=== PATIENT | male | born 1950 | race African-American/Black ===

== ENCOUNTER 2017-01-15 19:54 | Emergency (ER) | payer MEDICARE, MEDICAID ==
[~2017-01-15] VITALS: Ht 180.3 cm; Wt 91.0 kg
[2017-01-15] MEDS ORDERED: TRAMADOL 50MG TABLET PO ONE (22:30)
[2017-01-16 00:08] VITALS: BP 144/94
== END 2017-01-16 00:29 | disposition home or self-care (01) ==
LOC: ER 19:54
DX: S46.812A Strain of other muscles, fascia and tendons at shoulder and upper arm level, left arm, initial encounter (principal); M19.90 Unspecified osteoarthritis, unspecified site; I10 Essential (primary) hypertension; J45.909 Unspecified asthma, uncomplicated; Z87.828 Personal history of other (healed) physical injury and trauma; X58.XXXA Exposure to other specified factors, initial encounter; Y93.89 Activity, other specified; Y92.238 Other place in hospital as the place of occurrence of the external cause
CPT/HCPCS: 73060; 73080; 99284